=== PATIENT | male | born 1995 | race African-American/Black ===

== ENCOUNTER 2024-03-12 10:46 | Outpatient (AMB) | payer OTHER, SELFPAY ==
--- NOTE | 2024-03-12 10:50 | MHC.OFFVIS ---
Vital Signs 03/12/24 10:55 Height 5 ft 8 in Weight 260 lb 8 oz BMI 39.6 BP 134/71 Blood Pressure Location Lt brachial Position Sitting Pulse 62 Pulse Source Pulse Oximeter Pulse Oximetry (%) 96 Oxygen Delivery Method Room Air Intake Visit Reasons: BILATERAL SHOULDER,KNEE,HIP,BACK PAIN Intake Note: Pain today 1/10 Sybase Developer Required: No Accompanied by: Self / Same As Patient Allergies acetaminophen [From Tylenol] Allergy (Unknown, Verified 03/12/24 10:58) Unknown aspirin Allergy (Unknown, Verified 03/12/24 10:58) Unknown ibuprofen [From Advil] Allergy (Unknown, Verified 03/12/24 10:58) Unknown naproxen [From Aleve] Allergy (Unknown, Verified 03/12/24 10:58) Unknown HPI Comments Details: Kye is a very pleasant 28-year-old male who presents to the office today for evaluation management of his chronic right shoulder, right lower back, right hip and right knee pain He has been suffering with this pain for many years, denies inciting injury, fall, trauma. Pain today is rated as a 1/10. Constant throughout the day. Pain in the hip is worse in the winter, pain in the knee is worse in the summer. He was referred to his primary care doctor for his knee pain but is awaiting an appointment. He had x-rays ordered by his primary care doctor [facility], results were reviewed. Patient has not tried physical therapy, chiropractor, acupuncture, massage or injections. Reports allergy to Tylenol and [id number] nonsteroidal anti-inflammatory medications with reaction of hives. In terms of muscle damage condition is described as shooting, spasming, hot, burning, stabbing, sharp, cramping, throbbing, tingling, pins and needles. Pain is negatively impacting patient's enjoyment of life, general activity, mood, normal work, recreational activities, sleep and walking. Patient denies red flag symptoms including new loss of bowel, bladder or saddle anesthesia. Review of Systems Const All systems reviewed & are unremarkable except as noted in HPI and below Physical Exam Vital Signs: Last Vital Signs Pulse 62 03/12/24 10:55 BP 134/71 03/12/24 10:55 Pulse Ox 96 03/12/24 10:55 Oxygen Delivery Method Room Air 06/20/24 10:55 BMI result Body Mass Index 39.6 General: awake, alert, oriented. Answers questions appropriately. Fully engaged in examination. Skin: warm, dry, intact HEENT: Normocephalic. Hearing intact. Cardiac: External chest normal in appearance. Respiratory: No cough, audible wheezing or stridor. Abdomen: without gross distension. MS: No obvious swelling or deformities. Able to stand on bilateral tiptoes and bilateral heels.? Able to transition from sit to stand unassisted. Ambulates with bilaterally normal heel strike and toe off Full lumbar flexion-extension No pain with internal/external rotation of the right hip Right knee range of motion intact Nontender over midline lumbar vertebrae lumbar paraspinal muscles SLR negative bilaterally Neurological: Oriented to person, place, time and situation. Thought process intact. No gait abnormalities appreciated. Psychiatric: Appropriate mood and affect. Good judgment and insight. Results Reviewed Results Reviewed: 01/28/24: Review of x-ray reports received from [facility]. Left shoulder: Normal Right shoulder: Normal Left knee: normal Right knee: Normal Bilateral hips: Normal Cervical spine, thoracic spine, lumbar spine: Mild convex left lumbar curvature. Transitional lumbosacral junction with sacralization left L5. Otherwise normal cervical, thoracic and lumbar spine Assessment & Plan Assessment & Plan (1) Myofascial low back pain: Code(s): M54.50 - Low back pain, unspecified Category: Medical (2) Right shoulder pain: Code(s): M25.511 - Pain in right shoulder Category: Medical (3) Right hip pain: Code(s): M25.551 - Pain in right hip Category: Medical (4) Right knee pain: Code(s): M25.561 - Pain in right knee Category: Medical Plan 28-year-old male presented to the office today for evaluation management of his diffuse right-sided body pain. Order placed for PT eval and treat Tizanidine 2 mg p.o. t.i.d., patient advised on cautions for use. No driving while taking this medications. Do not take with alcohol or other [employer] depressants. Follow up in the office after a PT, sooner if needed Orders: Orders PT Evaluation and Treatment Today M25.511 - Pain in right shoulder, M25.551 - Pain in right hip, M25.561 - Pain in right knee, M54.50 - Low back pain, unspecified Medications: New tizanidine 2 mg PO TID PRN 90 tabs 1RF muscle spasticity Coding Level of Care Code New Pt Level 4 (44995) Diagnoses Myofascial low back pain M54.50 Right shoulder pain M25.511 Right hip pain M25.551 Right knee pain M25.561
[2024-03-12 10:55] VITALS: BP 134/71; PULSE 62; O2SAT 96; BMI 39.6
== END 2024-03-12 11:10 | disposition home or self-care (01) ==
PROVIDERS: PCP Internal Medicine; Referring Provider Internal Medicine; Visit Provider Registered Nurse Emergency
DX: M54.50 Low back pain, unspecified (principal); M25.511 Pain in right shoulder; M25.551 Pain in right hip; M25.561 Pain in right knee
CPT/HCPCS: 99204

== ENCOUNTER → 2024-03-12 10:46 | Outpatient (BNVA) | payer OTHER, SELFPAY | PROVIDERS: PCP Internal Medicine; Referring Provider Internal Medicine; Visit Provider Registered Nurse Emergency ==